=== PATIENT | male | born 2000 | race Two or more races ===

== ENCOUNTER 2024-12-09 21:48 | Emergency (ER) | payer OTHER ==
[~2024-12-09] VITALS: Ht 167.6 cm; Wt 89.6 kg
[2024-12-09 21:55] VITALS: BP 146/86; PULSE 110; RESP 16; TEMP 36.7; O2SAT 100
[2024-12-10] MEDS ORDERED: PRED5TAB48 MT
[2024-12-10] MEDS: DEXAMETHASONE 10 MG/ML VIAL PO ONE (00:38)
== END 2024-12-10 00:45 | disposition home or self-care (01) ==
LOC: ER 21:48
DX: R05.3 Chronic cough (principal); Z88.0 Allergy status to penicillin
CPT/HCPCS: 99283; 71045; J1100